=== PATIENT | female | born 1945 | race Hispanic/Latino ===

== ENCOUNTER 2017-06-20 11:06 | Emergency (ER) | payer MEDICARE ==
[~2017-06-20 11:06] MED LIST: CLOP75TA14 PO; CYCL5TAB PO; FERR1TAB65 PO; HYDR-4154 PO; HYDR200T4 PO; LEFL20TA18 PO; LISI40TA4 PO; METO100T14 PO; SIMV10TA6 PO
[2017-06-20 11:49] LABS: APPEARANCE,URINE Clear (CLEAR); BILIRUBIN,URINE Negative (NEGATIVE); COLOR,URINE Yellow (YELLOW); GLUCOSE, URINE (UA) Negative (NEGATIVE); KETONES,URINE Negative (NEGATIVE); LEUKOCYTE ESTERASE ,URINE Moderate (NEGATIVE); NITRATE,URINE Negative (NEGATIVE); OCCULT BLOOD,URINE Negative (NEGATIVE); PH,URINE 6.5 (5.0-8.0); PROTEIN,URINE POS 1+ (NEGATIVE); UROBILINOGEN,URINE 0.2 mg/dL (0.2-1.0)
[2017-06-20 11:59] LABS: RAPID GROUP A STREP NEGATIVE (NEGATIVE)
[2017-06-20 12:02] LABS: SQUAMOUS EPITHELIAL CELL,UR Few /LPF (0-2)
[2017-06-20 12:03] LABS: BACTERIA,URINE Few /HPF (None Seen); RBC,URINE None Seen /HPF (0-1)
[2017-06-20] MEDS ORDERED: SODIUM CHLORIDE 0.9% 1000ML 1,000 ML IV ONE (12:21)
[2017-06-20 12:25] LABS: BASOPHILS % (AUTO) 0.9 % (0.0-5.0); EOSINOPHILS % (AUTO) 0.2 % (0.0-8.0); HEMATOCRIT 28.9 % (36-48); MEAN CORPUSCULAR HEMOGLOBIN 27.9 pg (27.0-33.0); MEAN CORPUSCULAR HGB CONC 32.9 g/dL (32.0-36.0); MEAN CORPUSCULAR VOLUME 84.8 fL (79-99); NEUTROPHILS % (AUTO) 87.6 % (40.0-77.0); PLATELET COUNT (AUTO) 98 K/uL (130-400); RED CELL DISTRIBUTION WIDTH 16.6 % (11.0-15.5); WHITE BLOOD COUNT (AUTO) 11.8 K/uL (4.8-10.8)
[2017-06-20] MEDS ORDERED: ONDANSETRON HCL 4 MG/2 ML VIAL ONE (12:29)
[2017-06-20 12:50] LABS: LYMPHOCYTES % (AUTO) 5.3 % (21.0-51.0)
[2017-06-20 13:18] LABS: ALBUMIN 2.7 g/dL (3.5-5.0); BILIRUBIN,TOTAL 0.4 mg/dL (0.2-1.0); CREATININE 1.7 mg/dL (0.5-1.5); POTASSIUM 3.3 mmol/L (3.5-5.1); TOTAL PROTEIN, SERUM 6.5 g/dL (6.0-8.3)
[2017-06-20] MEDS ORDERED: ACETAMINOPHEN 325 MG TAB ONE (13:42)
== END 2017-06-20 16:18 | disposition home or self-care (01) ==
LOC: EDH 11:06
DX: B34.9 Viral infection, unspecified (principal); R11.2 Nausea with vomiting, unspecified; Z88.8 Allergy status to other drugs, medicaments and biological substances
CPT/HCPCS: 36415; 71020; 80053; 81001; 82550; 83690; 84484 ×2; 85025; 87088; 87804 ×2; 87880; 93005 ×2; 96361; 96374; 99285; J2405; J7030

== ENCOUNTER 2017-07-10 22:21 | Emergency (ER) | payer MEDICARE ==
[2017-07-10 23:29] LABS: BASOPHILS % (AUTO) 0.3 % (0.0-5.0); EOSINOPHILS % (AUTO) 0.1 % (0.0-8.0); HEMATOCRIT 28.2 % (36-48); LYMPHOCYTES % (AUTO) 5.5 % (21.0-51.0); MEAN CORPUSCULAR HEMOGLOBIN 27.1 pg (27.0-33.0); MEAN CORPUSCULAR HGB CONC 32.7 g/dL (32.0-36.0); MEAN CORPUSCULAR VOLUME 82.8 fL (79-99); MONOCYTES % (AUTO) 8.6 % (3.0-13.0); NEUTROPHILS % (AUTO) 85.5 % (40.0-77.0); PLATELET COUNT (AUTO) 126 K/uL (130-400); RED CELL DISTRIBUTION WIDTH 16.2 % (11.0-15.5); WHITE BLOOD COUNT (AUTO) 11.8 K/uL (4.8-10.8)
[2017-07-10 23:39] LABS: BILIRUBIN,DIRECT 0.3 mg/dL (0.0-0.3); BILIRUBIN,TOTAL 0.8 mg/dL (0.2-1.0); CREATININE 2.3 mg/dL (0.5-1.5); TOTAL PROTEIN, SERUM 7.9 g/dL (6.0-8.3)
[2017-07-10 23:45] LABS: POTASSIUM 2.9 mmol/L (3.5-5.1)
[2017-07-11] MEDS ORDERED: POTASSIUM BICARB/CIT AC 25 MEQ TABLET.EFF ONE (00:02)
[2017-07-11] MEDS ORDERED: SODIUM CHLORIDE 0.9% 500 ML IV ONE (00:14)
[2017-07-11 00:28] LABS: ERYTHROCYTE SEDIMENTATION RATE 119 MM/HR (0-15)
== END 2017-07-11 01:51 | disposition home or self-care (01) ==
LOC: EDH 22:21
DX: M10.9 Gout, unspecified (principal); M19.90 Unspecified osteoarthritis, unspecified site; I10 Essential (primary) hypertension; E78.5 Hyperlipidemia, unspecified; Z87.442 Personal history of urinary calculi; Z88.8 Allergy status to other drugs, medicaments and biological substances; M79.672 Pain in left foot
CPT/HCPCS: 36415; 73630; 80048; 80076; 85025; 85651; 86141; 93971; 96372; 99285; J1030; J7030

== ENCOUNTER 2017-08-27 18:26 | Emergency (ER) | payer MEDICARE ==
[2017-08-27 19:21] LABS: APPEARANCE,URINE Clear (CLEAR); BILIRUBIN,URINE Negative (NEGATIVE); COLOR,URINE Yellow (YELLOW); GLUCOSE, URINE (UA) Negative (NEGATIVE); KETONES,URINE Negative (NEGATIVE); LEUKOCYTE ESTERASE ,URINE Moderate (NEGATIVE); NITRATE,URINE Negative (NEGATIVE); OCCULT BLOOD,URINE Negative (NEGATIVE); PH,URINE 6.5 (5.0-8.0); PROTEIN,URINE POS 1+ (NEGATIVE); UROBILINOGEN,URINE 0.2 mg/dL (0.2-1.0)
[2017-08-27 19:30] LABS: BACTERIA,URINE Rare /HPF (None Seen); RBC,URINE 0-1 /HPF (0-1); SQUAMOUS EPITHELIAL CELL,UR Few /LPF (0-2); TRANSITIONAL EPI CELLS,URINE Rare /LPF (None Seen)
[2017-08-27 19:32] LABS: BASOPHILS % (AUTO) 0.9 % (0.0-5.0); HEMATOCRIT 28.1 % (36-48); LYMPHOCYTES % (AUTO) 11.6 % (21.0-51.0); MEAN CORPUSCULAR HEMOGLOBIN 27.8 pg (27.0-33.0); MEAN CORPUSCULAR HGB CONC 32.7 g/dL (32.0-36.0); MEAN CORPUSCULAR VOLUME 84.8 fL (79-99); NEUTROPHILS % (AUTO) 79.5 % (40.0-77.0); PLATELET COUNT (AUTO) 154 K/uL (130-400); RED BLOOD CELL COUNT(AUTO) 3.31 MIL/uL (4.00-5.50); RED CELL DISTRIBUTION WIDTH 18.6 % (11.0-15.5); WHITE BLOOD COUNT (AUTO) 7.6 K/uL (4.8-10.8)
[2017-08-27 19:44] LABS: CREATININE 2.1 mg/dL (0.5-1.5); POTASSIUM 3.6 mmol/L (3.5-5.1)
[2017-08-27 19:57] LABS: ALBUMIN 3.3 g/dL (3.5-5.0); BILIRUBIN,TOTAL 0.4 mg/dL (0.2-1.0); CREATINE KINASE MB 1.6 ng/mL (0.5-3.6); TOTAL PROTEIN, SERUM 7.7 g/dL (6.0-8.3)
[2017-08-27] MEDS ORDERED: FUROSEMIDE 10 MG/ML 4ML VIAL ONE (20:47)
== END 2017-08-27 21:46 | disposition home or self-care (01) ==
LOC: EDH 18:26
DX: I13.0 Hypertensive heart and chronic kidney disease with heart failure and stage 1 through stage 4 chronic kidney disease, or unspecified chronic kidney disease (principal); I50.9 Heart failure, unspecified; N18.9 Chronic kidney disease, unspecified; R60.0 Localized edema; E78.5 Hyperlipidemia, unspecified; M19.90 Unspecified osteoarthritis, unspecified site
CPT/HCPCS: 36415; 71046; 80053; 81001; 82550; 82553; 83880; 84484; 85025; 93005; 93970; 96374; 99285; J1940

== ENCOUNTER 2017-09-16 23:05 | Emergency (ER) | payer MEDICARE ==
[2017-09-16] MEDS ORDERED: METHYLPREDNISOLONE SOD SUCC 40MG/ML 1ML ONE (23:32)
[2017-09-16] MEDS ORDERED: DEXAMETHASONE SOD PHOSPHATE 4 MG/ML 1ML VIAL ONE (23:32)
[2017-09-16] MEDS ORDERED: MORPHINE SULFATE 4 MG/1ML SYG ONE (23:33)
[2017-09-16] MEDS ORDERED: HYDROCODONE/ACETAMINOPHEN 7.5/325 MG 15 ML UDCUP ONE (23:33)
== END 2017-09-16 23:58 | disposition home or self-care (01) ==
LOC: EDH 23:05
DX: M19.90 Unspecified osteoarthritis, unspecified site (principal); M25.50 Pain in unspecified joint; E78.5 Hyperlipidemia, unspecified; I10 Essential (primary) hypertension; Z88.8 Allergy status to other drugs, medicaments and biological substances
CPT/HCPCS: 96372 ×3; 99284; J1100; J2270; J2920

== ENCOUNTER 2017-09-20 09:04 | Emergency (ER) | payer MEDICARE ==
[2017-09-20 09:46] LABS: APPEARANCE,URINE Turbid (CLEAR); BILIRUBIN,URINE Negative (NEGATIVE); COLOR,URINE Yellow (YELLOW); GLUCOSE, URINE (UA) Negative (NEGATIVE); KETONES,URINE Negative (NEGATIVE); LEUKOCYTE ESTERASE ,URINE Large (NEGATIVE); NITRATE,URINE Negative (NEGATIVE); OCCULT BLOOD,URINE Small (NEGATIVE); PH,URINE 5.5 (5.0-8.0); PROTEIN,URINE POS 1+ (NEGATIVE); UROBILINOGEN,URINE 0.2 mg/dL (0.2-1.0)
[2017-09-20 10:05] LABS: BACTERIA,URINE Few /HPF (None Seen); WBC,URINE TNTC /HPF (0-1)
[2017-09-20 10:06] LABS: SQUAMOUS EPITHELIAL CELL,UR Rare /HPF (0-2)
== END 2017-09-20 10:27 | disposition home or self-care (01) ==
LOC: EDH 09:04
DX: N39.0 Urinary tract infection, site not specified (principal); M19.90 Unspecified osteoarthritis, unspecified site; E78.5 Hyperlipidemia, unspecified; I10 Essential (primary) hypertension; Z88.8 Allergy status to other drugs, medicaments and biological substances
CPT/HCPCS: 81001

== ENCOUNTER 2017-10-03 07:51 | Emergency (ER) | payer MEDICARE ==
[2017-10-03 08:36] LABS: BASOPHILS % (AUTO) 0.7 % (0.0-5.0); HEMATOCRIT 25.4 % (36-48); LYMPHOCYTES % (AUTO) 7.8 % (21.0-51.0); MEAN CORPUSCULAR HEMOGLOBIN 27.5 pg (27.0-33.0); MEAN CORPUSCULAR VOLUME 83.2 fL (79-99); MONOCYTES % (AUTO) 7.9 % (3.0-13.0); NEUTROPHILS % (AUTO) 82.6 % (40.0-77.0); PLATELET COUNT (AUTO) 82 K/uL (130-400); RED BLOOD CELL COUNT(AUTO) 3.05 MIL/uL (4.00-5.50); RED CELL DISTRIBUTION WIDTH 16.5 % (11.0-15.5); WHITE BLOOD COUNT (AUTO) 7.9 K/uL (4.8-10.8)
[2017-10-03 08:49] LABS: CREATININE 2.3 mg/dL (0.5-1.5); POTASSIUM 3.3 mmol/L (3.5-5.1)
[2017-10-03 08:56] LABS: BILIRUBIN,TOTAL 0.3 mg/dL (0.2-1.0); TOTAL PROTEIN, SERUM 7.3 g/dL (6.0-8.3)
[2017-10-03 09:19] LABS: APPEARANCE,URINE Clear (CLEAR); BILIRUBIN,URINE Negative (NEGATIVE); COLOR,URINE Yellow (YELLOW); GLUCOSE, URINE (UA) Negative (NEGATIVE); KETONES,URINE Negative (NEGATIVE); LEUKOCYTE ESTERASE ,URINE Trace (NEGATIVE); NITRATE,URINE Negative (NEGATIVE); OCCULT BLOOD,URINE Negative (NEGATIVE); PROTEIN,URINE POS 1+ (NEGATIVE); UROBILINOGEN,URINE 0.2 mg/dL (0.2-1.0)
[2017-10-03 09:32] LABS: BACTERIA,URINE Rare /HPF (None Seen); SQUAMOUS EPITHELIAL CELL,UR Moderate /HPF (0-2); WBC,URINE 0-1 /HPF (0-1)
[2017-10-03 09:37] LABS: CREATINE KINASE MB 1.9 ng/mL (0.5-3.6)
[2017-10-03] MEDS ORDERED: TRAMADOL HCL 50 MG TABLET ONE (09:53)
[2017-10-03 09:58] LABS: CRP QUANTITATIVE 154.2 mg/L (0.00-9.0)
[2017-10-03] MEDS ORDERED: METHYLPREDNISOLONE SOD SUCC 125MG/2ML VIAL ONE (10:19)
== END 2017-10-03 10:36 | disposition home or self-care (01) ==
LOC: EDH 07:51
DX: M13.841 Other specified arthritis, right hand (principal); M13.872 Other specified arthritis, left ankle and foot; I10 Essential (primary) hypertension; N28.9 Disorder of kidney and ureter, unspecified; E79.0 Hyperuricemia without signs of inflammatory arthritis and tophaceous disease; E78.5 Hyperlipidemia, unspecified; Z98.890 Other specified postprocedural states; Z88.8 Allergy status to other drugs, medicaments and biological substances
CPT/HCPCS: 36415; 71045; 73130; 80053; 81001; 82550; 82553; 84484; 84550; 85025; 85651; 86140; 93005; 96374; 99285; J2930

== ENCOUNTER → 2017-10-13 | Outpatient (CLI) | payer MEDICARE | END | disposition home or self-care (01) | LOC: SHCH 15:08 | PROVIDERS: ATTEND Internal Medicine Cardiovascular Disease | DX: K21.9 Gastro-esophageal reflux disease without esophagitis (principal) | CPT/HCPCS: 93970 ==

== ENCOUNTER 2017-12-04 13:46 | Emergency (ER) | payer MEDICARE ==
[2017-12-04 14:13] LABS: BASOPHILS % (AUTO) 0.3 % (0.0-5.0); EOSINOPHILS % (AUTO) 0.1 % (0.0-8.0); HEMATOCRIT 30.9 % (36-48); LYMPHOCYTES % (AUTO) 4.1 % (21.0-51.0); MEAN CORPUSCULAR HEMOGLOBIN 26.5 pg (27.0-33.0); MEAN CORPUSCULAR HGB CONC 33.5 g/dL (32.0-36.0); MEAN CORPUSCULAR VOLUME 79.1 fL (79-99); MONOCYTES % (AUTO) 5.3 % (3.0-13.0); NEUTROPHILS % (AUTO) 90.2 % (40.0-77.0); PLATELET COUNT (AUTO) 161 K/uL (130-400); RED CELL DISTRIBUTION WIDTH 17.2 % (11.0-15.5); WHITE BLOOD COUNT (AUTO) 10.7 K/uL (4.8-10.8)
[2017-12-04 14:21] LABS: CARBON DIOXIDE 27 mmol/L (21-32); CHLORIDE 101 mmol/L (101-111); CREATININE 1.7 mg/dL (0.5-1.5); GLOMERULAR FILTR. RATE CALC 31 mL/min (>60); GLUCOSE,RANDOM 104 mg/dL (70-105); SODIUM SERUM 139 mmol/L (136-145); UREA NITROGEN, BLOOD 30 mg/dL (7-18)
[2017-12-04 14:25] LABS: INR 1.01 (0.85-1.15); PARTIAL THROMBOPLASTIN TIME 32.3 SEC (26.3-35.5); PROTHROMBIN TIME 10.6 SEC (9.6-11.6)
[2017-12-04 14:34] LABS: ALANINE AMINOTRANSFERASE 12 U/L (12-78); ALBUMIN 2.9 g/dL (3.5-5.0); ASPARTATE AMINOTRANSFERASE 20 U/L (10-37); BILIRUBIN,TOTAL 0.6 mg/dL (0.2-1.0); CREATINE KINASE MB < 0.5 ng/mL (0.5-3.6); CREATINE KINASE, TOTAL 79 U/L (21-232)
[2017-12-04] MEDS ORDERED: DIAZEPAM 5 MG TABLET ONE (15:48)
[2017-12-04] MEDS ORDERED: MORPHINE SULFATE 2 MG/ML 1ML SYG ONE (17:16)
[2017-12-04] MEDS ORDERED: METHYLPREDNISOLONE SOD SUCC 125MG/2ML VIAL ONE (18:12)
== END 2017-12-04 19:15 | disposition home or self-care (01) ==
LOC: EDH 13:46
DX: S16.1XXA Strain of muscle, fascia and tendon at neck level, initial encounter (principal); M06.9 Rheumatoid arthritis, unspecified; M25.511 Pain in right shoulder; M25.512 Pain in left shoulder; M10.9 Gout, unspecified; E78.5 Hyperlipidemia, unspecified; I10 Essential (primary) hypertension; Z88.8 Allergy status to other drugs, medicaments and biological substances; Z98.890 Other specified postprocedural states; X58.XXXA Exposure to other specified factors, initial encounter; Y93.89 Activity, other specified; Y92.89 Other specified places as the place of occurrence of the external cause; Y99.8 Other external cause status
CPT/HCPCS: 36415; 72125; 73030; 80053; 82550; 82553; 84484 ×2; 85025; 85610; 85730; 93005; 96374; 96375; 99285; J2930

== ENCOUNTER → 2018-05-04 | Outpatient (CLI) | payer MEDICARE | END | disposition home or self-care (01) | LOC: SHCH 15:15 | PROVIDERS: ATTEND Internal Medicine Cardiovascular Disease | DX: I65.23 Occlusion and stenosis of bilateral carotid arteries (principal) | CPT/HCPCS: 93880 ==

== ENCOUNTER 2018-05-26 18:06 | Emergency (ER) | payer MEDICARE ==
[2018-05-26 18:57] LABS: CREATININE 2.1 mg/dL (0.5-1.5); POTASSIUM 3.3 mmol/L (3.5-5.1)
[2018-05-26 19:00] LABS: INR 1.03 (0.85-1.15); PARTIAL THROMBOPLASTIN TIME 34.8 SEC (26.3-35.5); PROTHROMBIN TIME 10.8 SEC (9.6-11.6)
[2018-05-26 19:02] LABS: ALBUMIN 3.3 g/dL (3.5-5.0); BILIRUBIN,TOTAL 0.4 mg/dL (0.2-1.0); CRP QUANTITATIVE 42.9 mg/L (0.00-9.0); TOTAL PROTEIN, SERUM 8.2 g/dL (6.0-8.3)
[2018-05-26 19:10] LABS: B-TYPE NATRIURETIC PEPTIDE 360 pg/mL (0-100)
[2018-05-26 19:31] LABS: APPEARANCE,URINE Clear (CLEAR); BILIRUBIN,URINE Negative (NEGATIVE); COLOR,URINE Yellow (YELLOW); GLUCOSE, URINE (UA) Negative (NEGATIVE); KETONES,URINE Negative (NEGATIVE); LEUKOCYTE ESTERASE ,URINE Trace (NEGATIVE); NITRATE,URINE Negative (NEGATIVE); OCCULT BLOOD,URINE Negative (NEGATIVE); PH,URINE 5.5 (5.0-8.0); PROTEIN,URINE Trace (NEGATIVE); UROBILINOGEN,URINE 0.2 mg/dL (0.2-1.0)
[2018-05-26 19:40] LABS: BACTERIA,URINE Rare /HPF (None Seen); RBC,URINE 0-1 /HPF (0-1); SQUAMOUS EPITHELIAL CELL,UR Few /HPF (0-2)
[2018-05-26 19:49] LABS: ERYTHROCYTE SEDIMENTATION RATE 100 MM/HR (0-30)
[2018-05-26] MEDS ORDERED: TRAMADOL HCL 50 MG TABLET ONE (19:59)
[2018-05-26] MEDS ORDERED: METHYLPREDNISOLONE SOD SUCC 125MG/2ML VIAL ONE (20:01)
[2018-05-26 20:03] LABS: BASOPHILS % (AUTO) 0.6 % (0.0-5.0); MEAN CORPUSCULAR HEMOGLOBIN 26.1 pg (27.0-33.0); MEAN CORPUSCULAR HGB CONC 32.1 g/dL (32.0-36.0); MEAN CORPUSCULAR VOLUME 81.4 fL (79-99); MONOCYTES % (AUTO) 6.1 % (3.0-13.0); NEUTROPHILS % (AUTO) 85.3 % (40.0-77.0); NUCLEATED RED BLOOD CELLS 0.1 % (0.0-0.19); PLATELET COUNT (AUTO) 140 K/uL (130-400); RED BLOOD CELL COUNT(AUTO) 3.44 MIL/uL (4.00-5.50); RED CELL DISTRIBUTION WIDTH 15.9 % (11.0-15.5); WHITE BLOOD COUNT (AUTO) 7.7 K/uL (4.8-10.8)
== END 2018-05-26 23:01 | disposition home or self-care (01) ==
LOC: EDH 18:06
DX: M17.11 Unilateral primary osteoarthritis, right knee (principal); I10 Essential (primary) hypertension; E78.5 Hyperlipidemia, unspecified; Z88.8 Allergy status to other drugs, medicaments and biological substances
CPT/HCPCS: 36415; 71045; 73562; 80053; 81001; 82550; 83880; 84484; 85025; 85610; 85651; 85730; 86140; 93005; 93971; 96374; 99284; J2930

== ENCOUNTER 2018-06-18 11:20 | Emergency (ER) | payer MEDICARE ==
[2018-06-18] MEDS ORDERED: HYDROCODONE/ACETAMINOPHEN 5/325 MG TAB ONE (12:40)
[2018-06-18] MEDS ORDERED: KETOROLAC TROMETHAMINE 30MG/ML ONE (12:40)
[2018-06-18] MEDS ORDERED: DEXAMETHASONE SOD PHOSPHATE 10MG/ML 1ML VIAL ONE (12:40)
== END 2018-06-18 13:39 | disposition home or self-care (01) ==
LOC: EDH 11:20
DX: M25.521 Pain in right elbow (principal); M25.531 Pain in right wrist; M25.571 Pain in right ankle and joints of right foot; I10 Essential (primary) hypertension; E78.5 Hyperlipidemia, unspecified; Z98.890 Other specified postprocedural states; Z88.8 Allergy status to other drugs, medicaments and biological substances
CPT/HCPCS: 29105; 73080; 73130; 96372 ×2; 99283; J1100; J1885

== ENCOUNTER 2019-01-14 12:55 | Emergency (ER) | payer MEDICARE ==
[~2019-01-14 12:55] MED LIST changes: +ALLO100T PO; +AMOX500C2 PO; -CYCL5TAB PO; +DEXA4TAB PO; -FERR1TAB65 PO; +FERR325T22 PO; -HYDR-4154 PO; +HYDR100T27 PO; +HYDR12.530 PO; -HYDR200T4 PO; -LEFL20TA18 PO; +LENA15CA PO; +QUET25TA74 PO; +VALA100027 PO
[2019-01-14 13:37] LABS: APPEARANCE,URINE CLOUDY (CLEAR); BILIRUBIN,URINE NEGATIVE (NEGATIVE); COLOR,URINE YELLOW (YELLOW); GLUCOSE, URINE (UA) NEGATIVE (NEGATIVE); KETONES,URINE NEGATIVE (NEGATIVE); LEUKOCYTE ESTERASE ,URINE LARGE (NEGATIVE); NITRATE,URINE NEGATIVE (NEGATIVE); OCCULT BLOOD,URINE TRACE-INTACT (NEGATIVE); PROTEIN,URINE 100 mg/dL (NEGATIVE); UROBILINOGEN,URINE 0.2 mg/dL (0.2-1.0)
[2019-01-14 13:43] LABS: CREATININE 2.2 mg/dL (0.5-1.5); POTASSIUM 3.5 mmol/L (3.5-5.1)
[2019-01-14 13:45] LABS: BASOPHILS % (AUTO) 2.1 % (0.0-5.0); EOSINOPHILS % (AUTO) 5.2 % (0.0-8.0); HEMATOCRIT 31.8 % (36-48); LYMPHOCYTES % (AUTO) 17.1 % (21.0-51.0); MEAN CORPUSCULAR HEMOGLOBIN 31.8 pg (27.0-33.0); MEAN CORPUSCULAR HGB CONC 32.5 g/dL (32.0-36.0); MEAN CORPUSCULAR VOLUME 97.9 fL (79-99); MONOCYTES % (AUTO) 10.2 % (3.0-13.0); NEUTROPHILS % (AUTO) 65.4 % (40.0-77.0); NUCLEATED RED BLOOD CELLS 0.2 % (0.0-0.19); PLATELET COUNT (AUTO) 24 K/uL (130-400); RED BLOOD CELL COUNT(AUTO) 3.25 MIL/uL (4.00-5.50); RED CELL DISTRIBUTION WIDTH 18.5 % (11.0-15.5); WHITE BLOOD COUNT (AUTO) 3.8 K/uL (4.8-10.8)
[2019-01-14 13:46] LABS: RBC,URINE 0-1 /HPF (0-1); WBC,URINE TNTC /HPF (0-1)
[2019-01-14 13:47] LABS: BACTERIA,URINE Few /HPF (None Seen); SQUAMOUS EPITHELIAL CELL,UR Few /HPF (0-2)
[2019-01-14 13:48] LABS: ALBUMIN 2.9 g/dL (3.5-5.0); BILIRUBIN,TOTAL 0.5 mg/dL (0.2-1.0); TOTAL PROTEIN, SERUM 6.6 g/dL (6.0-8.3)
[2019-01-14] MEDS ORDERED: CEFTRIAXONE SODIUM 1 GM ONE (14:11)
[2019-01-14] MEDS ORDERED: SODIUM CHLORIDE 0.9% 100 ML IV ONE (14:12)
== END 2019-01-14 15:01 | disposition home or self-care (01) ==
LOC: EDH 12:55
DX: N39.0 Urinary tract infection, site not specified (principal); M19.90 Unspecified osteoarthritis, unspecified site; E78.5 Hyperlipidemia, unspecified; I10 Essential (primary) hypertension; Z88.1 Allergy status to other antibiotic agents; Z88.8 Allergy status to other drugs, medicaments and biological substances
CPT/HCPCS: 36415; 80053; 81001; 85025; 96374; 99284; J0696

== ENCOUNTER 2019-03-25 19:25 | Inpatient (IN) | payer MEDICARE ==
[~2019-03-25] VITALS: Ht 157.5 cm; Wt 57.2 kg
[~2019-03-25 19:25] MED LIST changes: -SIMV10TA6 PO; +SIMV10TA97 PO
[2019-03-25] MEDS ORDERED: LORAZEPAM 2 MG/ML 1 ML VIAL ONE (20:06)
[2019-03-25] MEDS ORDERED: NITROGLYCERIN 1GM/1 INCH PACKET TD ONE (20:06)
[2019-03-25] MEDS ORDERED: SODIUM CHLORIDE 0.9% 1000ML 1,000 ML IV ONE (20:07)
[2019-03-25 20:08] LABS: BASOPHILS % (AUTO) 0.4 % (0.0-5.0); EOSINOPHILS % (AUTO) 0.8 % (0.0-8.0); HEMATOCRIT 35.5 % (36-48); LYMPHOCYTES % (AUTO) 7.7 % (21.0-51.0); MEAN CORPUSCULAR HEMOGLOBIN 31.4 pg (27.0-33.0); MEAN CORPUSCULAR HGB CONC 33.1 g/dL (32.0-36.0); MONOCYTES % (AUTO) 7.1 % (3.0-13.0); PLATELET COUNT (AUTO) 60 K/uL (130-400); RED BLOOD CELL COUNT(AUTO) 3.74 MIL/uL (4.00-5.50); RED CELL DISTRIBUTION WIDTH 17.9 % (11.0-15.5); WHITE BLOOD COUNT (AUTO) 8.2 K/uL (4.8-10.8)
[2019-03-25] MEDS ORDERED: PROPOFOL 1000 MG/100 ML 100 ML IV ONE (20:22)
[2019-03-25] MEDS ORDERED: LABETALOL HCL 5 MG/ML 20ML VIAL IV ONE (20:23)
[2019-03-25 20:27] LABS: APPEARANCE,URINE Cloudy (CLEAR); BILIRUBIN,URINE Negative (NEGATIVE); COLOR,URINE Yellow (YELLOW); GLUCOSE, URINE (UA) Negative (NEGATIVE); KETONES,URINE Negative (NEGATIVE); LEUKOCYTE ESTERASE ,URINE Moderate (NEGATIVE); NITRATE,URINE Negative (NEGATIVE); OCCULT BLOOD,URINE Trace (NEGATIVE); PH,URINE 7.5 (5.0-8.0); PROTEIN,URINE 300 mg/dL (NEGATIVE); UROBILINOGEN,URINE 0.2 mg/dL (0.2-1.0)
[2019-03-25 20:31] LABS: CREATININE 4.2 mg/dL (0.5-1.5)
[2019-03-25 20:35] LABS: ALBUMIN 3.1 g/dL (3.5-5.0); BILIRUBIN,DIRECT 0.2 mg/dL (0.0-0.3); BILIRUBIN,TOTAL 0.9 mg/dL (0.2-1.0); TOTAL PROTEIN, SERUM 6.8 g/dL (6.0-8.3)
[2019-03-25] MEDS ORDERED: MIDAZOLAM HCL 1 MG/ML 2ML VIAL ONE (20:36)
[2019-03-25 20:41] LABS: BACTERIA,URINE Moderate /HPF (None Seen); MUCUS,URINE Moderate LPF (None Seen)
[2019-03-25] MEDS ORDERED: POTASSIUM CHLORIDE 10% ELIXIR 20 MEQ/15 ML UDCUP ONE (21:10)
[2019-03-25 21:12] LABS: B-TYPE NATRIURETIC PEPTIDE 1390 pg/mL (0-100)
[2019-03-25] MEDS ORDERED: NITROGLYCERIN 50 MG/D5% WATER 1 BOT ONE (22:26)
[2019-03-25 23:23] LABS: ABG BASE EXCESS 0.7 mmol/L (-2.0-3.0); ABG HCO3 24.6 mmol/L (21.0-28.0); ABG OXYGEN SATURATION 99.4 % (95.0-99.0); ABG PCO2 37 mmHg (32-45)
[2019-03-25] MEDS ORDERED: LEVETIRACETAM 500 MG/5 ML SD VIAL IV ONE (23:28)
[2019-03-25] MEDS ORDERED: SODIUM CHLORIDE 0.9% 100 ML IV ONE (23:29)
[2019-03-26] VITALS (68 sets, daily range): BP systolic 104–204; BP diastolic 47–94
[2019-03-26] MEDS ORDERED: SODIUM CHLORIDE 0.9% 1000ML 1,000 ML IV SCH (00:30)
[2019-03-26] MEDS ORDERED: MAGNESIUM 2GM PREMIX 50ML 50 ML IV PRN (00:30)
[2019-03-26] MEDS ORDERED: FUROSEMIDE 10 MG/ML 2ML VIAL IV SCH (00:30)
[2019-03-26] MEDS ORDERED: SODIUM CHLORIDE 0.9% 100 ML IV ONE (00:31)
[2019-03-26] MEDS ORDERED: CEFEPIME HCL 2 GM VIAL ONE (00:31)
[2019-03-26] MEDS ORDERED: LACTATED RINGERS 1000ML 1,000 ML IV ONE (00:31)
[2019-03-26] MEDS ORDERED: MIDAZOLAM HCL 1 MG/ML 2ML VIAL ONE (00:45)
--- NOTE | 2019-03-26 01:35 | NUR ---
RECEIVED BY STRETCHER FROM ER. MOVED TO ICU BED 215. HAS PROPOFOL DRIP INFUSING FROM ER. LR INFUSING FROM ER. PLACED ON VENT BY RT WITH ORDERED SETTINGS. OPENS EYES AND ATTEMPTS TO MOUTH ETT. REASSURED AND SEDATION INCREASED. VERSED DRIP READY AND STARTED FOR SEDATION.
[2019-03-26] MEDS: PROPOFOL 1000 MG/100 ML IV PRN ×2 (01:40→13:01)
[2019-03-26] MEDS ORDERED: CEFEPIME HCL 1 GM VIAL IVP SCH ×2 (01:45→02:00)
[2019-03-26] MEDS ORDERED: ACETAMINOPHEN 325 MG TAB PO PRN (02:00)
[2019-03-26] MEDS ORDERED: NITROGLYCERIN 50 MG/D5% WATER 250 BOT IV PRN (02:00)
[2019-03-26] MEDS ORDERED: ONDANSETRON HCL 4 MG/2 ML VIAL IVP PRN (02:00)
[2019-03-26] MEDS: LACTATED RINGERS 1000ML 1,000 ML IV SCH ×3 (02:00→18:00)
[2019-03-26] MEDS ORDERED: VANCOMYCIN PROTOCOL PER PHARMACY IV SCH (02:00)
--- NOTE | 2019-03-26 02:00 | NUR ---
STATUS CONTINUES TO ATTEMPT TO MOUTH ETT. LIFTS HANDS TO TUBE. BILATERAL HAND MITTENS APPLIED TO PREVENT SELF EXTUBATION. SEDATION TITRATED FOR VENT CONTROL.
[2019-03-26] MEDS ORDERED: MIDAZOLAM 100MG-0.9% NS 100ML 100 ML IV PRN (02:15)
--- NOTE | 2019-03-26 02:15 | NUR ---
IN ROOM NOW AND NURSE INTRODUCTION AND QUESTIONS COMPLETED.
--- NOTE | 2019-03-26 03:00 | NUR ---
METAL MODEL MAKER CALL Sera KENNEDY NP BEEPED TO MAKE AWARE OF PT.
--- NOTE | 2019-03-26 03:10 | NUR ---
RECYCLING COORDINATOR CALL SHANIKA LEWIS NP FOR HOSPITALIST BEEPED TO MAKE AWARE OF MEDICATION LIST.
--- NOTE | 2019-03-26 03:15 | NUR ---
SOLAR PANEL INSTALLATION SUPERVISOR CALL Karthik LEWIS SOLAR PANEL INSTALLATION SUPERVISOR CALLS AND INFORMED OF MED LIST AVAILABLE.
--- NOTE | 2019-03-26 03:20 | NUR ---
TRUCK DRIVING CALL Sera KENNEDY NP CALLS AND INFORMED OF PT AND SEDATION WITH BP AT THIS TIME 159. ORDER RECEIVED.
[2019-03-26] MEDS ORDERED: ONDA8TAB12 PO (03:25)
[2019-03-26] MEDS ORDERED: KCL10IV IV (03:25)
[2019-03-26] MEDS ORDERED: NICARDIPINE IN NACL, ISO-OSM 200 ML IV ONE (03:34)
[2019-03-26] MEDS: VANCOMYCIN 1GM+NS 250ML 250 ML IV SCH (03:55)
[2019-03-26 06:07] LABS: HEMATOCRIT 27.5 % (36-48); MEAN CORPUSCULAR HEMOGLOBIN 31.4 pg (27.0-33.0); MEAN CORPUSCULAR HGB CONC 33.1 g/dL (32.0-36.0); NUCLEATED RED BLOOD CELLS 0.1 % (0.0-0.19); PLATELET COUNT (AUTO) 55 K/uL (130-400); RED BLOOD CELL COUNT(AUTO) 2.89 MIL/uL (4.00-5.50); RED CELL DISTRIBUTION WIDTH 17.7 % (11.0-15.5); WHITE BLOOD COUNT (AUTO) 9.6 K/uL (4.8-10.8)
[2019-03-26 06:13] LABS: INR 1.04 (0.85-1.15); PROTHROMBIN TIME 10.9 SEC (9.6-11.6)
[2019-03-26 06:14] LABS: ALBUMIN 2.2 g/dL (3.5-5.0); ASPARTATE AMINOTRANSFERASE 11 U/L (10-37); CARBON DIOXIDE 26 mmol/L (21-32); CHLORIDE 106 mmol/L (101-111); CREATININE 3.7 mg/dL (0.5-1.5); GLOMERULAR FILTR. RATE CALC 13 mL/min (>60); GLUCOSE,RANDOM 84 mg/dL (70-105); PHOSPHORUS 4.5 mg/dL (2.5-4.9); SODIUM SERUM 141 mmol/L (136-145); TOTAL PROTEIN, SERUM 4.9 g/dL (6.0-8.3); UREA NITROGEN, BLOOD 51 mg/dL (7-18)
[2019-03-26 06:23] LABS: ALANINE AMINOTRANSFERASE < 6 U/L (12-78)
[2019-03-26 06:24] LABS: POTASSIUM 2.3 mmol/L (3.5-5.1)
[2019-03-26] MEDS: LIDOCAINE HCL-MPF 1% 2ML VIAL IV PRN ×4 (06:32→21:00)
[2019-03-26] MEDS: POTASSIUM CHLORIDE 20MEQ/100ML 100 ML IV PRN ×4 (06:33→21:00)
[2019-03-26] MEDS: CEFEPIME HCL 2 GM VIAL IVP SCH ×3 (07:35→23:55)
[2019-03-26] MEDS: LEVETIRACETAM 500 MG in SODIUM CHLORIDE 0.9% 100 ML IV SCH ×2 (08:09→21:00)
[2019-03-26] MEDS: FAMOTIDINE/PF 20 MG/2 ML VIAL IV SCH (08:10)
[2019-03-26] MEDS ORDERED: FAMOTIDINE/PF 20 MG/2 ML VIAL IV SCH ×2 (09:00)
[2019-03-26] MEDS ORDERED: LEVETIRACETAM 500 MG in SODIUM CHLORIDE 0.9% 100 ML IV SCH (09:00)
--- NOTE | 2019-03-26 11:53 | NUR ---
Dr Jean's office called for consult for this patient, as he is patient's oncologist; Dr. Leung is applications manager and returned call; he is aware of patient status and consult; no new orders at this time
[2019-03-26] MEDS ORDERED: ROCURONIUM BROMIDE 10MG/1ML 5ML VL IV ONE (14:15)
[2019-03-26 15:46] LABS: POTASSIUM 3.4 mmol/L (3.5-5.1)
--- NOTE | 2019-03-26 18:13 | NUR ---
TRANSFER PLACED A CALL TO [facility] [place] INIT[place] A TRANSFER FOR CONTINOUS EEG IN NEURO ICU. SPOKE WITH [facility], SHE STATED THAT NEURO ICU IS AT [facility], NO BEDS AT THIS TIME, INFORMED PRIMARY NURSE
[2019-03-26] MEDS: NICARDIPINE IN NACL, ISO-OSM 200 ML IV PRN (18:27)
--- NOTE | 2019-03-26 19:45 | NUR ---
RING RING OF YELLOW MATERIAL AND [place]USTILLO CLEAR STONE TAKEN HOME BY BALBIR MAYO GRANDDAUGHTER.
--- NOTE | 2019-03-26 20:06 | NUR ---
ASSESSMENT REMAINS ON VENT WITH ORDERED SETTINGS AND SEDATION. SEIZURE PRECAUTIONS IN PLACE. REMAINS ON CARDENE FOR BP CONTROL. ASSESSMENT COMPLETED SEE FLOW SHEET. Addendum: 03/26/19 at 2007 by ALEX OLIVARES RN RN Amended: Links added.
[2019-03-27] VITALS (29 sets, daily range): BP systolic 105–174; BP diastolic 51–79
[2019-03-27] MEDS: PROPOFOL 1000 MG/100 ML IV PRN ×2 (01:10→10:47)
[2019-03-27] MEDS: VANCOMYCIN 1GM+NS 250ML 250 ML IV SCH (01:10)
[2019-03-27] MEDS: LACTATED RINGERS 1000ML 1,000 ML IV SCH ×2 (01:27→11:42)
[2019-03-27 04:21] LABS: HEMATOCRIT 30.2 % (36-48); MEAN CORPUSCULAR HEMOGLOBIN 32.3 pg (27.0-33.0); MEAN CORPUSCULAR HGB CONC 33.3 g/dL (32.0-36.0); MEAN CORPUSCULAR VOLUME 97.1 fL (79-99); PLATELET COUNT (AUTO) 53 K/uL (130-400); RED BLOOD CELL COUNT(AUTO) 3.11 MIL/uL (4.00-5.50); RED CELL DISTRIBUTION WIDTH 17.9 % (11.0-15.5)
[2019-03-27 04:51] LABS: ALBUMIN 2.5 g/dL (3.5-5.0); BILIRUBIN,TOTAL 0.7 mg/dL (0.2-1.0); CREATININE 3.8 mg/dL (0.5-1.5); MAGNESIUM 2.5 mg/dL (1.80-2.40); PHOSPHORUS 5.5 mg/dL (2.5-4.9); POTASSIUM 3.8 mmol/L (3.5-5.1); THYROID STIMULATING HORMONE 1.35 uIU/mL (0.36-3.74); TOTAL PROTEIN, SERUM 5.8 g/dL (6.0-8.3)
[2019-03-27] MEDS: LIDOCAINE HCL-MPF 1% 2ML VIAL IV PRN (05:13)
[2019-03-27] MEDS: POTASSIUM CHLORIDE 20MEQ/100ML 100 ML IV PRN (05:14)
[2019-03-27] MEDS: LEVETIRACETAM 500 MG in SODIUM CHLORIDE 0.9% 100 ML IV SCH (08:26)
[2019-03-27] MEDS: CEFEPIME HCL 2 GM VIAL IVP SCH (08:26)
[2019-03-27] MEDS: FAMOTIDINE/PF 20 MG/2 ML VIAL IV SCH (08:27)
--- NOTE | 2019-03-27 08:30 | NUR ---
TRANSFER PLACED A CALL TO [facility] SPOKE TO BILL THE RN HS TO FOLLOW UP ON THE TRANSFER. HE STATED THAT THEY ARE STILL AT [facility] BUT WILL CALL ME WITH AN UPDATE SOON A BED OPENS UP. PRIMARY NURSE INFORMED
--- NOTE | 2019-03-27 08:59 | NUR ---
MD ROUNDS DR. LOWRY IN T O SEE PATIENT. MD REVIEWED CHART AND I UPDATED ON POC. WE ARE PENDING TRANSFER TO [facility] [place] FOR CONTINUOUS EEG MONITORING, PENDING DR. ZIEGLER CONSULT AND PENDING 2D ECHO. MD SPOKE WITH PT'S SON AND GRANDDAUGHTER. PT CONTINUES ON PROPOFOL AT 20 MCG (7.2ML), VERSED 1 MG/HR AND CARDENE RESTARTED AT 2.5 MG/HR (25ML) D/T SBP >170. NGT TO LEFT NARE TO LOW INTERMITTENT SUCTION WITH GREEN DRAINAGE NOTED. PATIENT ON VENTILATOR AC RATE 12/TV 400/PEEP 5/FI02 40%, ETT 7.5 24 AT LIP. PT IS RESPONSIVE TO PAINFUL STIMULI,+ GAG NOTED WITH PUPILS REACTIVE TO LIGHT. WILL CONT TO MONITOR CLOSELY. ASSESSMENT DOCUMENTED.
[2019-03-27] MEDS ORDERED: THIAMINE HCL 100 MG/ML 2ML VIAL IVP SCH (09:00)
[2019-03-27] MEDS: NICARDIPINE IN NACL, ISO-OSM 200 ML IV PRN (09:44)
--- NOTE | 2019-03-27 10:11 | NUR ---
ROUNDS DR. ZIEGLER IN TO SEE PATIENT. MD REVIEWED RECORD AND SPOKE WITH FAMILY. NEW ORDERS RECEIVED TO BE CARRIED OUT. WILL CONT TO MONITOR CLOSELY.
--- NOTE | 2019-03-27 10:30 | NUR ---
TRANSFER RECEIVED A CALL ROM KYLE CALIXTO AT [facility], PATIENT ACCEPTED TO MICU ROOM 1206, REPORT TO [id number]. FAMILY AND PRIMARY NURSE INFORMED
[2019-03-27] MEDS ORDERED: WATER IV SCH (11:00)
[2019-03-27] MEDS ORDERED: DEXTROSE 5% IV SCH (11:00)
[2019-03-27] MEDS ORDERED: FOSPHENYTOIN SODIUM IJ SCH (11:00)
[2019-03-27] MEDS ORDERED: SODIUM CHLORIDE 0.9% IJ SCH (11:00)
[2019-03-27] MEDS ORDERED: VALPROIC ACID IV SCH (11:00)
[2019-03-27] MEDS ORDERED: COMPOUND IV MISC 1 EACH IVSOLN MISC PRN (11:15)
--- NOTE | 2019-03-27 11:19 | NUR ---
ROUNDS DR. LEE IN TO SEE PATIENT. MD UPDATED ON STATUS. PAT[place] BEEN APPROV[place] [facility] [place] MONITORING. DR. ZIEGLER MADE AWARE OF BED AVAILABILITY. INSTRUCTED TO ADMINISTER CEREBREX AFTER LOADING DOSE HAS BEEN CONFIRMED WITH PHARMACY AND TO HOLD VALPORIC ACID UNTIL EVALUATED BY NEUROLOGY. ATTEMPT TO CALL RE[place] [facility] [place]UCCESSFUL, NURSE UNAVAILABLE. WAS INFORMED THEY WILL CALL BACK.
[2019-03-27] MEDS ORDERED: PHARMACY COMMUNICATION MISC SCH (11:30)
[2019-03-27 11:40] LABS: CREATININE,URINE RANDOM 32 mg/dL (30-135); SODIUM,URINE RANDOM 93 mmol/l (40-220)
--- NOTE | 2019-03-27 12:23 | NUR ---
REPORT GIVEN TO BAILEE MEZA RN AT [facility].
--- NOTE | 2019-03-27 12:37 | NUR ---
CARDENE DRIP TURNED OFF, SBP 105/51. WILL CONT TO MONITOR.
--- NOTE | 2019-03-27 13:29 | NUR ---
[facility] HERE TO TRANSFER PATIENT TO [facility]. BP AT 101/47. I CALLED [facility], SPOKE WITH ERICH GONZALEZ RN AND INFORMED HER OF ETA. I ALSO TOLD HER WE WERE PENDING TO RECEIVE MEDICAL RECORDS FROM DR. BRIONES.
--- NOTE | 2019-03-27 16:55 | NUR ---
DC PLAN PATIENT TRANSFERRED TO [facility] ALREADY GONE NO NEEDS VERBALIZED BY NURSING STAFF. Addendum: 03/27/19 at 1655 by DEEPAK BOSS RN CM Amended: Links added.
[2019-03-27] MEDS ORDERED: FOSPHENYTOIN SODIUM 100 MG/2 ML VIAL IV SCH (19:00)
[2019-03-28] MEDS ORDERED: VANCOMYCIN 1GM+NS 250ML 250 ML IV SCH (09:00)
[2019-03-28 10:25] LABS: APPEARANCE,URINE Clear (CLEAR); BILIRUBIN,URINE Negative (NEGATIVE); COLOR,URINE Yellow (YELLOW); GLUCOSE, URINE (UA) Negative (NEGATIVE); KETONES,URINE Negative (NEGATIVE); LEUKOCYTE ESTERASE ,URINE Trace (NEGATIVE); NITRATE,URINE Negative (NEGATIVE); OCCULT BLOOD,URINE Negative (NEGATIVE); PH,URINE 5.5 (5.0-8.0); PROTEIN,URINE POS 2+ mg/dL (NEGATIVE); UROBILINOGEN,URINE 0.2 mg/dL (0.2-1.0)
[2019-03-28 10:34] LABS: BACTERIA,URINE Few /HPF (None Seen)
== END 2019-03-27 13:25 | disposition short-term general hospital (02) | DRG 208 ==
LOC: EDH 19:25 → EDHIP 03-26 00:07 → 2CH 03-26 00:53
PROVIDERS: ADMIT Family Medicine; ATTEND Family Medicine
PROC: 5A1945Z Respiratory Ventilation, 24-96 Consecutive Hours (ICD-10-PCS; principal; 2019-03-26)
PROC: 0BH17EZ Insertion of Endotracheal Airway into Trachea, Via Natural or Artificial Opening (ICD-10-PCS; 2019-03-26)
DX: J96.01 Acute respiratory failure with hypoxia (principal); N17.9 Acute kidney failure, unspecified; I16.1 Hypertensive emergency; D61.818 Other pancytopenia; E87.3 Alkalosis; C90.00 Multiple myeloma not having achieved remission; G40.409 Other generalized epilepsy and epileptic syndromes, not intractable, without status epilepticus; E87.70 Fluid overload, unspecified; E87.6 Hypokalemia; M06.9 Rheumatoid arthritis, unspecified; E78.5 Hyperlipidemia, unspecified; H54.7 Unspecified visual loss; M10.9 Gout, unspecified; M19.90 Unspecified osteoarthritis, unspecified site; N18.9 Chronic kidney disease, unspecified; I12.9 Hypertensive chronic kidney disease with stage 1 through stage 4 chronic kidney disease, or unspecified chronic kidney disease; N28.1 Cyst of kidney, acquired; Z96.652 Presence of left artificial knee joint; Z85.028 Personal history of other malignant neoplasm of stomach; Z85.528 Personal history of other malignant neoplasm of kidney; Z85.72 Personal history of non-Hodgkin lymphomas; Z92.21 Personal history of antineoplastic chemotherapy; Z90.710 Acquired absence of both cervix and uterus; Z82.5 Family history of asthma and other chronic lower respiratory diseases; Z82.49 Family history of ischemic heart disease and other diseases of the circulatory system; Z82.3 Family history of stroke; Z83.3 Family history of diabetes mellitus; Z82.0 Family history of epilepsy and other diseases of the nervous system; Z80.0 Family history of malignant neoplasm of digestive organs
CPT/HCPCS: 31500; 36415; 70450; 71045; 76700; 80048; 80053; 80076; 80177; 81001; 82550; 82570; 82803; 82948; 83605; 83615; 83690; 83735; 83880; 83935; 84100; 84132; 84300; 84443; 84484; 84550; 85025; 85027; 85610; 86038; 86215; 86235; 87040; 87088; 93005; 94002; 94003; G0378; J0692; J1953; J2060; J2250; J2704; J3370; J3411; J3475; J3480; J3490; J7030; J7060; J7120; Q2009

== ENCOUNTER → 2020-05-10 | Outpatient (CLI) | payer MEDICARE ==
[~2020-05-10] MED LIST changes: +KCL10IV IV; +ONDA8TAB12 PO; -VALA100027 PO; +VALA100031 PO
== END | disposition home or self-care (01) ==
LOC: SHCH 10:56
PROVIDERS: ATTEND Internal Medicine Cardiovascular Disease
DX: I35.0 Nonrheumatic aortic (valve) stenosis (principal); I10 Essential (primary) hypertension; R01.1 Cardiac murmur, unspecified
CPT/HCPCS: 93306; 93356

== ENCOUNTER 2020-10-30 19:16 | Emergency (ER) | payer MEDICARE ==
[~2020-10-30 19:16] MED LIST changes: -LISI40TA4 PO; +LISI40TA9 PO; +QUET25TA34 PO; -QUET25TA74 PO
[2020-10-30 20:33] LABS: BASOPHILS % (AUTO) 0.6 % (0.0-5.0); EOSINOPHILS % (AUTO) 5.5 % (0.0-8.0); HEMATOCRIT 38.4 % (36-48); MEAN CORPUSCULAR HEMOGLOBIN 29.4 pg (27.0-33.0); MEAN CORPUSCULAR HGB CONC 31.3 g/dL (32.0-36.0); MEAN CORPUSCULAR VOLUME 94.1 fL (79-99); MONOCYTES % (AUTO) 6.2 % (3.0-13.0); NEUTROPHILS % (AUTO) 71.4 % (40.0-77.0); PLATELET COUNT (AUTO) 127 K/uL (130-400); RED BLOOD CELL COUNT(AUTO) 4.08 MIL/uL (4.00-5.50); RED CELL DISTRIBUTION WIDTH 12.8 % (11.0-15.5); WHITE BLOOD COUNT (AUTO) 6.9 K/uL (4.8-10.8)
[2020-10-30 20:45] LABS: CREATININE 2.7 mg/dL (0.5-1.5); POTASSIUM 4.4 mmol/L (3.5-5.1)
[2020-10-30 20:49] LABS: ALBUMIN 3.8 g/dL (3.5-5.0); BILIRUBIN,TOTAL 0.3 mg/dL (0.2-1.0); TOTAL PROTEIN, SERUM 8.7 g/dL (6.0-8.3)
[2020-10-30] MEDS ORDERED: AMOXICILLIN/POTASSIUM CLAV 875-125 TABLET PO ONE (21:05)
[2020-10-30] MEDS ORDERED: ACETAMINOPHEN-CODEINE 300/30MG TAB ONE (21:05)
== END 2020-10-30 21:14 | disposition home or self-care (01) ==
LOC: EDH 19:16
DX: J06.9 Acute upper respiratory infection, unspecified (principal); I10 Essential (primary) hypertension; E78.5 Hyperlipidemia, unspecified; M19.90 Unspecified osteoarthritis, unspecified site; Z88.8 Allergy status to other drugs, medicaments and biological substances; Z98.890 Other specified postprocedural states; Z85.528 Personal history of other malignant neoplasm of kidney
CPT/HCPCS: 36415; 71045; 80053; 85025; 87880

== ENCOUNTER → 2021-12-24 | Outpatient (CLI) | payer MEDICARE ==
[~2021-12-24] MED LIST changes: -QUET25TA34 PO; +QUET25TA36 PO
== END | disposition home or self-care (01) ==
LOC: SHCH 14:09
PROVIDERS: ATTEND Internal Medicine Cardiovascular Disease
DX: I08.0 Rheumatic disorders of both mitral and aortic valves (principal)
CPT/HCPCS: 93306